=== PATIENT | female | born 1980 | race Caucasian/White ===

== ENCOUNTER 2019-07-18 04:20 | Emergency (ER) | payer MEDICAID ==
[~2019-07-18] VITALS: Ht 185.4 cm; Wt 154.2 kg
[~2019-07-18 04:20] MED LIST: CYAN-178 PO; [UNRECOGNIZED DRUG - CODE] PO
[2019-07-18 04:24] VITALS: BP 149/83
--- NOTE | 2019-07-18 04:28 | NUR ---
PT AMBULATED TO BED 12 WITH STEADY GAIT.
--- NOTE | 2019-07-18 04:33 | NUR ---
39 Y/O FEMALE C/O LEFT EAR ACHE X 1 WEEK OFF AND ON. PT TRIED OTC AND HOME REMEDIES TO UNCLOG LEFT EAR BUT FEELS EAR IS WORSE. PAIN IS 10/10 AND FEELS ACHING. PT DESCRIBES EAR PAIN ACHING . PAIN RADIATES TO LEFT NECK AND DOWN MIDDLE OF BACK. PT HAS HEADACHE. PT TOOK 1GRAM OF TYLENOL AT 330AM WITH SOME PAIN RELIEF. DENIES N/V/D; SKIN IS PINK/WARM/DRY; AAOX4 WITH EVEN AND STEADY GAIT; PT DENIES ANY FEVER, CP, SOB, OR COUGH AT THIS TIME; VSS; PATIENT POSITIONED FOR COMFORT; HOB ELEVATED; BEDRAILS UP X1; BED DOWN AND LOCKED. ER MADE AWARE OF PT STATUS. PMH:ASTHMA/HTN/SMOKES NKA
--- NOTE | 2019-07-18 04:37 | NUR ---
ERMD AT BEDSIDE EXAMING PT
[2019-07-18 05:08] VITALS: BP 149/83
== END 2019-07-18 05:08 | disposition home or self-care (01) ==
LOC: MED 04:20
DX: H92.02 Otalgia, left ear (principal); H74.8X9 Other specified disorders of middle ear and mastoid, unspecified ear; J45.909 Unspecified asthma, uncomplicated; I10 Essential (primary) hypertension; Z79.899 Other long term (current) drug therapy
CPT/HCPCS: 99283